=== PATIENT | male | born 1990 | race Caucasian/White ===

== ENCOUNTER 2024-05-08 18:49 | Inpatient (IN) | payer MEDICAID ==
[~2024-05-08] VITALS: Ht 188 cm; Wt 90.4 kg
[~2024-05-08 18:49] MED LIST: MEDICAL MARIJUANA PO
[2024-05-08 19:52] LABS: BASOPHILS % (AUTO) 0.9 % (0.0-2.0); EOSINOPHILS % (AUTO) 2.1 % (1.0-6.0); HEMATOCRIT 41.4 % (41-53); HEMOGLOBIN 13.5 g/dL (13.5-17.5); LYMPHOCYTES # (AUTO) 1.1 K/uL (1.0-4.8); LYMPHOCYTES % (AUTO) 19.2 % (22.0-44.0); MEAN CORPUSCULAR HEMOGLOBIN 28.9 pg (26.0-34.0); MEAN CORPUSCULAR HGB CONC 32.7 G/dL (31.0-37.0); MEAN CORPUSCULAR VOLUME 89 fL (80-100); MONOCYTES # (AUTO) 0.4 K/uL (0.1-1.0); MONOCYTES % (AUTO) 6.2 % (2.0-9.0); NEUTROPHILS # (AUTO) 4.2 K/uL (1.8-7.7); NEUTROPHILS % (AUTO) 71.6 % (40.0-70.0); PLATELET COUNT (AUTO) 194 K/uL (150-450); RED BLOOD CELL COUNT(AUTO) 4.67 MIL/uL (4.50-5.90); RED CELL DISTRIBUTION WIDTH 14.6 % (11.5-14.5); WHITE BLOOD COUNT (AUTO) 5.8 K/uL (4.5-11.0)
[2024-05-08 20:00] LABS: ANION GAP 10 mmol/L (8-16); CALCIUM, TOTAL 8.7 mg/dL (8.8-10.5); CARBON DIOXIDE 25 mmol/L (22-29); CHLORIDE 106 mmol/L (98-107); CREATININE 0.94 mg/dL (0.60-1.30); GLOMERULAR FILTR. RATE CALC > 60 mL/min (>60); GLUCOSE,RANDOM 106 mg/dL (70-110); POTASSIUM 3.4 mmol/L (3.5-5.1); SODIUM SERUM 141 mmol/L (136-145); UREA NITROGEN, BLOOD 9 mg/dL (7-18)
[2024-05-08 20:08] LABS: ALCOHOL, BLOOD (SERUM) 262 mg/dL (0-10)
[2024-05-08 21:14] LABS: COVID AG,FIA SOURCE NASAL SWAB
[2024-05-08 21:17] LABS: PH,URINE DRUG SCREEN 5.5 (5.0-8.0)
[2024-05-08 21:24] LABS: ALCOHOL, URINE DRUG SCREEN POSITIVE (NEGATIVE); AMPHET/METH SCREEN,URINE NEGATIVE (NEGATIVE); BARBITURATE SCREEN, URINE NEGATIVE (NEGATIVE); BENZODIAZEPINES SCREEN,URINE NEGATIVE (NEGATIVE); CANNABINOID SCREEN,URINE POSITIVE (NEGATIVE); COCAINE SCREEN,URINE NEGATIVE (NEGATIVE); METHADONE SCREEN, URINE NEGATIVE (NEGATIVE); OPIATE SCREEN,URINE NEGATIVE (NEGATIVE); PHENCYCLIDINE SCREEN,URINE NEGATIVE (NEGATIVE)
[2024-05-08 21:32] LABS: SARS-COV2 (COVID) ANTIGEN,FIA Negative (Negative)
[2024-05-08] MEDS: POTASSIUM CHLORIDE 10 MEQ ER TABLET PO ONE (22:37)
[2024-05-09 00:57] LABS: APPEARANCE,URINE CLEAR (CLEAR); BILIRUBIN,URINE NEGATIVE (NEGATIVE); COLOR,URINE COLORLESS (YELLOW); GLUCOSE, URINE (UA) NEGATIVE (NEGATIVE); KETONES,URINE NEGATIVE (NEGATIVE); LEUKOCYTE ESTERASE ,URINE NEGATIVE (NEGATIVE); NITRATE,URINE NEGATIVE (NEGATIVE); OCCULT BLOOD,URINE NEGATIVE (NEGATIVE); PH,URINE 5.5 (5.0-8.0); PROTEIN,URINE NEGATIVE (NEGATIVE); SPECIFIC GRAVITIY, URINE 1.008 (1.003-1.030); UROBILINOGEN,URINE <=1.0 mg/dL (<=1.0)
[2024-05-09] MEDS: LORazepam 2 MG TABLET PO PRN (03:44)
[2024-05-09] MEDS: ZOLPIDEM TARTRATE 10 MG TABLET PO PRN (03:44)
[2024-05-09 03:57] VITALS: BP 132/77; PULSE 77; RESP 18; TEMP 97.5; O2SAT 97
[2024-05-09 08:19] VITALS: BP 121/66; PULSE 88; RESP 18; TEMP 98.4; O2SAT 97
[2024-05-09] MEDS: INFLUENZA VIRUS VACCINE TVS (6MO+) 2024-25/PF 45 MCG/0.5 ML SYRINGE IM. ONE (12:30)
[2024-05-09] MEDS ORDERED: MAGNESIUM HYDROXIDE SUSPENSION 30 ML UDCUP PO PRN (15:30)
[2024-05-09] MEDS ORDERED: LOPERAMIDE HCL 2 MG CAPSULE PO PRN (15:30)
[2024-05-09] MEDS ORDERED: PETROLATUM,WHITE 28 GM JELLY TP PRN (15:30)
[2024-05-09] MEDS ORDERED: ONDANSETRON 4 MG TABLET PO PRN (15:30)
[2024-05-09] MEDS ORDERED: IBUPROFEN 400 MG TABLET PO PRN (15:30)
[2024-05-09] MEDS ORDERED: ALBUTEROL SULFATE HFA 90 MCG/PUFF 8 GM INHALER IH PRN (15:30)
[2024-05-09] MEDS ORDERED: NICOTINE 14 MG/24 HOUR PATCH TD PRN (15:30)
[2024-05-09] MEDS ORDERED: MAG HYDROX/ALUMINUM HYD/SIMETH ES 30 ML SUSPENSION UDCUP PO PRN (15:30)
[2024-05-09] MEDS ORDERED: GuaiFENesin/D-METHORPHAN [SUGAR-FREE] 200-20MG/10 ML SYRUP UDCUP PO PRN (15:30)
[2024-05-09] MEDS ORDERED: DOCUSATE SODIUM 100 MG CAPSULE PO PRN (15:30)
[2024-05-09] MEDS ORDERED: CloNIDine HCL 0.1 MG TABLET PO PRN (15:30)
[2024-05-09] MEDS ORDERED: ACETAMINOPHEN 325 MG TABLET PO PRN (15:30)
[2024-05-09 20:32] VITALS: BP 144/90; PULSE 89; RESP 16; TEMP 97.7; O2SAT 97
[2024-05-10 09:19] VITALS: BP 145/97; PULSE 115; RESP 16; TEMP 97.7; O2SAT 96
[2024-05-10 15:41] VITALS: PULSE 72; RESP 18; O2SAT 100
[2024-05-10] MEDS: HALOPERIDOL 5 MG TABLET PO PRN (15:55)
[2024-05-10 20:51] VITALS: BP 147/92; PULSE 75; RESP 16; TEMP 97.8; O2SAT 99
[2024-05-11 08:16] VITALS: BP 132/89; PULSE 74; RESP 17; TEMP 98.3; O2SAT 99
[2024-05-11 09:39] LABS: CHOL/HDL RATIO 3.2 (4.2-7.3); POTASSIUM 4.9 mmol/L (3.5-5.1)
[2024-05-11 10:07] LABS: HEMOGLOBIN A1C 4.9 % (3.8-5.6)
[2024-05-11 10:08] LABS: THYROID STIMULATING HORMONE 2.03 uIU/mL (0.36-3.74)
== END 2024-05-11 20:09 | disposition home or self-care (01) | DRG 751 ==
LOC: EMS 18:49 → B2S 05-09 02:01 → EMS 05-09 02:42
PROVIDERS: ADMIT Psychiatry & Neurology Child & Adolescent Psychiatry; ATTEND Psychiatry & Neurology Child & Adolescent Psychiatry
PROC: GZ52ZZZ Individual Psychotherapy, Cognitive (ICD-10-PCS; principal; 2024-05-09)
PROC: GZ56ZZZ Individual Psychotherapy, Supportive (ICD-10-PCS; 2024-05-09)
DX: F33.1 Major depressive disorder, recurrent, moderate (principal); R45.850 Homicidal ideations; E87.6 Hypokalemia; Z20.822 Contact with and (suspected) exposure to COVID-19; F43.10 Post-traumatic stress disorder, unspecified; G89.29 Other chronic pain; M54.9 Dorsalgia, unspecified; F12.90 Cannabis use, unspecified, uncomplicated; F10.929 Alcohol use, unspecified with intoxication, unspecified; Y90.9 Presence of alcohol in blood, level not specified; M54.30 Sciatica, unspecified side; I10 Essential (primary) hypertension
CPT/HCPCS: 80048; 80061; 80307; 81003; 83036; 84132; 84443; 85025; G0480